=== PATIENT | male | born 1960 | race African-American/Black ===

== ENCOUNTER → 2019-08-07 | Outpatient (CLI) | payer MEDICARE ==
[2015-09-21 12:34] VITALS: BP 189/75
[~2019-08-07] MED LIST: ALBU2.5V8 IH; ALBU8.5H6 IH; ALLO100T PO; AMLO2.5T5 PO; AMLO5TAB10 PO; ARIP2TAB3 PO; ASPI-482 PO; ATOR40TA59 PO; Albuterol Sulfate NEB; BRIM5DRO3 EACHEYE; CALC667T4 PO; CARV6.2511 PO; CEFA2PIG IV; CHOL2000 PO; CITA20TA6 PO; CLON0.1T PO; CLON0.3T4 PO; CLON1PAT TD; CLOP75TA PO; DOCU-150 PO; DULO20CA PO; DULO30CA2 PO; DULO60CA6 PO; FLUC150T2 PO; FLUT9.9S NS; FOLI0.8T21 PO; FURO20TA3 PO; FURO80TA72 PO; HYDR-2769 PO; HYDR100T24 PO; HYDR10TA2 PO; INDO25CA21 PO; INSU100I17 SQ; INSU100V13 SQ; INSU100V31 SQ; INSU100V6 SQ; INSU100V8 SQ; LATA2.5D3 EACHEYE; LOSA-73 PO; LOSA100T2 PO; LOSA25TA54 PO; METO-239 PO; METO10TA5 PO; METO50TA6 PO; PATI8.4P PO; PREG150C PO; PREG50CA91 PO
== END | disposition home or self-care (01) ==
LOC: LAB 15:00
PROVIDERS: ATTEND Internal Medicine Gastroenterology
DX: Z01.818 Encounter for other preprocedural examination (principal); Z11.59 Encounter for screening for other viral diseases; N28.9 Disorder of kidney and ureter, unspecified
CPT/HCPCS: U0003-CS

== ENCOUNTER → 2019-08-12 | Day surgery (SDC) | payer MEDICARE ==
[~2019-08-12] MED LIST changes: +IV NORMAL SALINE 1000ML BAG 1,000 ML IV ONE; +IV RINGERS,LACTATED 1000ML 1,000 ML IV SCH; +LIDOCAINE 2% PF 5 ML VIAL. ONE; +PROPOFOL 10 MG/ML (20ML) VIAL. IV ONE
[2019-08-12 09:00] VITALS: BP 152/73
== END ==
LOC: ENDOS 07:16
PROVIDERS: ATTEND Internal Medicine Gastroenterology
DX: Z12.11 Encounter for screening for malignant neoplasm of colon (principal); K64.0 First degree hemorrhoids; K63.89 Other specified diseases of intestine; D64.9 Anemia, unspecified; I12.9 Hypertensive chronic kidney disease with stage 1 through stage 4 chronic kidney disease, or unspecified chronic kidney disease; E11.22 Type 2 diabetes mellitus with diabetic chronic kidney disease; N18.9 Chronic kidney disease, unspecified; J45.909 Unspecified asthma, uncomplicated; E78.00 Pure hypercholesterolemia, unspecified; F15.90 Other stimulant use, unspecified, uncomplicated; Z87.39 Personal history of other diseases of the musculoskeletal system and connective tissue; Z79.84 Long term (current) use of oral hypoglycemic drugs; Z79.82 Long term (current) use of aspirin
CPT/HCPCS: 82962; G0105; J2704; 45378

== ENCOUNTER 2020-06-20 11:21 | Day surgery (SDC) | payer MEDICARE ==
[~2020-06-20] VITALS: Ht 182.9 cm; Wt 117.9 kg
[~2020-06-20 11:21] MED LIST changes: +AMLO-186 PO; -AMLO5TAB10 PO; +HYDROmorphone 2 MG/ML VIAL IVP PRN; -IV NORMAL SALINE 1000ML BAG 1,000 ML IV ONE; +IV NORMAL SALINE 1000ML BAG 1,000 ML IV SCH; +MORPHINE SULFATE 2 MG/ML VIAL. IVP PRN; +PROCHLORPERAZINE 10 MG/2 ML VIAL. IVP PRN; +fentaNYL PF VIAL 100 MCG/2 ML VIAL IVP PRN; +fentaNYL PF VIAL 100 MCG/2 ML VIAL ONE
[2020-06-20] MEDS: INSULIN LISPRO 100 UNIT/ML 3ML VIAL for OP,RR ONLY. SQ PRN ×2 (11:52→15:08)
[2020-06-20] MEDS ORDERED: CHLORHEXIDINE 0.12% 15 ML MOUTHWASH. ONE (12:28)
[2020-06-20] MEDS ORDERED: BUPIVACAINE-EPI 0.5% 30 ML VIAL KIT. ONE (12:28)
[2020-06-20] MEDS ORDERED: GELATIN SPONGE SIZE 100. ONE (12:28)
[2020-06-20] MEDS ORDERED: ROCURONIUM 50 MG/5 ML VIAL. ONE (12:42)
[2020-06-20] MEDS ORDERED: GELATIN SPONGE SIZE 12-7MM SPONGE. TP ONE (14:02)
[2020-06-20] MEDS ORDERED: NEOSTIGMINE METHYLSULFATE 5 MG/5 ML SYRINGE. ONE (14:23)
[2020-06-20] MEDS ORDERED: GLYCOPYRROLATE 1 MG/5 ML VIAL. ONE (14:24)
[2020-06-20] MEDS ORDERED: PHENYLEPHRINE in 0.9% NACL PF 1 MG/10 ML SYRINGE. IV ONE (14:26)
[2020-06-20] MEDS ORDERED: ONDANSETRON PF 4 MG/2 ML VIAL. ONE (14:32)
[2020-06-20] MEDS ORDERED: SEVOFLURANE 61 TO 120 MINUTES. IH ONE (14:33)
--- NOTE | 2020-06-20 14:50 | PDOC4 ---
OPERATIVE NOTE Date: Date: June 20, 2020 Pre-Op Diagnosis: Renal failure Asthma HTN DM Periodontally compromised and symptomatic teeth # 1, 4, 16, 17, 32 Post-Op Diagnosis: same Procedure Performed: extraction of periodontally compromised and symptomatic teeth # 1, 4, 16, 17, 32 Surgeon: kelly Anesthesia Type: mcnitt Blood Loss: 20 Specimans Obtained: none teeth disposed of in OR Findings: see dictation Complications: none Operative Note: see dictation Renal failure Asthma HTN DM Periodontally compromised and symptomatic teeth # 1, 4, 16, 17, 32 LAVONNE HILLMAN DMD June 20, 2020 14:50
[2020-06-20] MEDS ORDERED: INSULIN LISPRO 100 UNIT/ML 3ML VIAL for OP,RR ONLY. SQ ONE ×2 (15:10)
[2020-06-20] MEDS ORDERED: fentaNYL PF VIAL 100 MCG/2 ML VIAL ONE (15:18)
--- NOTE | 2020-06-20 15:36 | OP ---
DATE OF SURGERY: 06/20/2020 OPERATING SERVICE: spray booth operator. ATTENDING PHYSICIAN: Ryan Dumont DMD PREOPERATIVE DIAGNOSES: 1. Renal failure. 2. Hypertension. 3. Diabetes mellitus. 4. Periodontally compromised teeth are painful and symptomatic, teeth #1, #16, #17, #32 and also #4 was added by the patient in the preoperative holding area as he reports he continues to bite his tongue constantly and it is highly annoying and would like this tooth extracted, that is tooth #4. POSTOPERATIVE DIAGNOSES: 1. Renal failure. 2. Hypertension. 3. Diabetes mellitus. 4. Periodontally compromised teeth are painful and symptomatic, teeth #1, #16, #17, #32 and also #4 was added by the patient in the preoperative holding area as he reports he continues to bite his tongue constantly and it is highly annoying and would like this tooth extracted, that is tooth #4. PROCEDURES PERFORMED: Surgical extraction of #1, #4, #16, #17 and #32. BRIEF HISTORY: The patient is a 59-year-old male, referred to our clinic by Dr. Patton of the [facility] for extraction of symptomatic periodontally compromised teeth #1, #16, #17, and #32 (#4 was added by the patient on the day of surgery. This patient is trying to become a candidate for a kidney transplant. He notes that he has multiple teeth that need addressed and that he needs these teeth removed prior to be coming evaluated as a transplant candidate. He was referred by Dr. Patton from the [facility]. Review was complicated, post past medical history. He has multiple comorbidities that required escalation in the setting of care to the OR. In the OR, the permit was obtained. The permit was obtained from the patient. History and physical was performed in our clinic. All the patient's questions were answered at the time of consultation and also, preoperative holding area prior to surgery. DRAINS PLACED: None. SPECIMEN SENT: None, all teeth were disposed of in the OR. ESTIMATED BLOOD LOSS: Approximately 20 mL COMPLICATIONS: None noted at the time of surgery. OPERATIVE DESCRIPTION: After the history and physical was updated in the preoperative holding area, the patient was transported by the Anesthesia service to the operating suite, placed in the supine position. General anesthesia was induced. The patient was then intubated and the tube was secured to the upper left face. Surgery began after timeout, all perioperative staff was in agreement. Preoperative antibiotic was administered. All the patient's pressure points were padded and checked by the perioperative team. The patient was then prepped and draped in a normal sterile fashion for a clean contaminated surgery in the mouth. A moistened throat pack was placed and 24 mL of 0.5% Marcaine, 1:200,000 epinephrine were administered to the proposed surgical areas. At the culmination of the procedure, the rest of the Marcaine approximately 6 mL for a total of 30 mL were administered to the patient. Surgery began on the right quadrant placement of a bite block and a Wieder tongue retractor was utilized to help manage the soft tissue and protect as adjacent tissues and teeth. Full-thickness mucoperiosteal flap was reflected buccally with a distal hockey stick at 1, 32 and 16, 17 and ultimately an envelope flap was replaced at tooth #4. Tooth was then luxated, elevated and extracted with hand instruments and rotary instrumentation as needed to remove all teeth and root tips. No sinus exposure was noted and no inferior alveolar nerve was exposed in the process of procedure of extractions for these teeth. All sites were lavaged and curetted with copious normal sterile saline suction and the areas were then suctioned. All sites were closed with 3-0 chromic gut sutures in a [id number] fashion at least 2 sutures per site to establish hemostasis. Gelfoam was placed in each surgical site. The patient was then felt to be hemostatic. All surgery was then completed at this time. The oral cavity was then lavaged and suctioned. The moistened throat pack was removed. An OG was passed and the stomach was decompressed. The patient was then returned to the care of Anesthesia where he was awakened and extubated and transported to the PACU in stable condition. ALYX DR: Chetna TID: [id number]
[2020-06-20 15:58] VITALS: BP 156/68
== END 2020-06-20 16:50 | disposition home or self-care (01) ==
LOC: SURG 11:21
PROVIDERS: ATTEND Dentist Oral and Maxillofacial Surgery
DX: K00.9 Disorder of tooth development, unspecified (principal); I13.2 Hypertensive heart and chronic kidney disease with heart failure and with stage 5 chronic kidney disease, or end stage renal disease; E11.22 Type 2 diabetes mellitus with diabetic chronic kidney disease; I50.9 Heart failure, unspecified; N18.6 End stage renal disease; E11.42 Type 2 diabetes mellitus with diabetic polyneuropathy; G62.9 Polyneuropathy, unspecified; E11.39 Type 2 diabetes mellitus with other diabetic ophthalmic complication; H40.9 Unspecified glaucoma; M19.90 Unspecified osteoarthritis, unspecified site; E78.00 Pure hypercholesterolemia, unspecified; E11.51 Type 2 diabetes mellitus with diabetic peripheral angiopathy without gangrene; E11.65 Type 2 diabetes mellitus with hyperglycemia; G47.33 Obstructive sleep apnea (adult) (pediatric); J45.909 Unspecified asthma, uncomplicated; E66.9 Obesity, unspecified; F32.9 Major depressive disorder, single episode, unspecified; D64.9 Anemia, unspecified; Z80.8 Family history of malignant neoplasm of other organs or systems; Z84.1 Family history of disorders of kidney and ureter; Z79.4 Long term (current) use of insulin; Z79.01 Long term (current) use of anticoagulants; Z94.0 Kidney transplant status; Z91.013 Allergy to seafood; Z98.49 Cataract extraction status, unspecified eye; Z88.8 Allergy status to other drugs, medicaments and biological substances; Z79.899 Other long term (current) drug therapy; Z86.718 Personal history of other venous thrombosis and embolism; Z87.01 Personal history of pneumonia (recurrent); Z98.890 Other specified postprocedural states; Z82.49 Family history of ischemic heart disease and other diseases of the circulatory system
CPT/HCPCS: 41899; 82962; 87426; A4930; J0690; J2370; J2405; J2704; J2710; J3010; J3490; A4657; J1815